=== PATIENT | female | born 1980 | race Caucasian/White ===

== ENCOUNTER 2018-06-04 08:24 | Emergency (ER) | payer BC, OTHER ==
[~2018-06-04] VITALS: Ht 165.1 cm; Wt 81.7 kg
--- NOTE | ~2018-06-04 | EKG ---
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 06/04/18 1623 7 7 Tee Croft MD, [facility] /EPI
[~2018-06-04 08:24] MED LIST: ABILIFY 5 MG TAB5 M1 PO; AMBIEN 10 MG TA10 MG PO; CARISOPRODOL 3350 MG PO; CLONAZEPAM 1 MG1 M1 PO; CLONAZEPAM PO; EFFEXOR XR150 MG PO; EFFEXOR50 MG PO; IBUPROFEN 600600 M1 PO; IBUPROFEN 800800 MG PO; LIDODERM TP; LUPRON; LUPRON DEPOT-PE30 MG IM; NEURONTIN 300M300 M2 PO; NOHOMEMEDICATIONS; NORCO 5-325 TA1 EACH PO; PAMELOR PO; PERCOCET 10-321 EACH PO
[2018-06-04 08:45] LABS: ABSOLUTE NEUTROPHILS 5.4 thou/uL (1.4-8.2); BASOPHILS 0.9 % (0.0-2.0); EOSINOPHILS 7.2 % (0.0-3.0); HEMATOCRIT 39.9 % (37.0-47.0); HEMOGLOBIN 13.9 gm/dL (12.0-15.0); LYMPHOCYTES 23.4 % (24.0-44.0); MCH 29.8 pg (26.0-34.0); MCHC 34.7 g/dL (28.0-37.0); MONOCYTES 6.3 % (1.0-8.0); PLATELET COUNT 377 thou/uL (150-400); POLYS 62.2 % (36.0-66.0); RBC 4.64 mil/uL (4.20-5.00); RDW 14.8 % (10.5-14.5); WBC 8.7 thou/uL (4.0-11.0)
[2018-06-04 08:55] LABS: ANION GAP 7 mmol/L (7-16); BUN 18 mg/dL (7-18); CALCIUM 9.3 mg/dL (8.5-10.1); CHLORIDE 105 mmol/L (98-107); CO2 27 mmol/L (21-32); CREATININE 1.1 mg/dL (0.6-1.0); GLUCOSE 96 mg/dL (74-106); POTASSIUM 4.4 mmol/L (3.5-5.1); SODIUM 139 mmol/L (136-145)
[2018-06-04] MEDS ORDERED: ABILIFY 5 MG TAB5 M1 PO (09:02)
[2018-06-04] MEDS ORDERED: EFFEXOR 5050 MG/1 T1 PO (09:02)
[2018-06-04] MEDS ORDERED: TOPROL XL25 MG PO (09:03)
[2018-06-04] MEDS ORDERED: BUSPIRONE HCL10 MG PO (09:03)
[2018-06-04] MEDS ORDERED: AMBIEN 10 MG TA10 MG PO (09:03)
[2018-06-04] MEDS ORDERED: CLONAZEPAM 1 MG1 M1 PO (09:03)
[2018-06-04 09:05] LABS: TROPONIN-I <0.06 ng/mL (<0.06)
[2018-06-04] MEDS ORDERED: NORCO 5-325 TA1 EACH PO (09:38)
[2018-06-04 09:54] VITALS: BP 110/65
== END 2018-06-04 10:28 | disposition home or self-care (01) ==
LOC: ER 08:24
PROVIDERS: Emergency Medicine
DX: R09.1 Pleurisy (principal); R07.89 Other chest pain; R06.02 Shortness of breath; Z90.49 Acquired absence of other specified parts of digestive tract; Z88.8 Allergy status to other drugs, medicaments and biological substances; Z88.1 Allergy status to other antibiotic agents; Z91.012 Allergy to eggs

== ENCOUNTER 2018-06-06 10:56 | Emergency (ER) | payer BC, OTHER ==
[~2018-06-06] VITALS: Ht 165.1 cm; Wt 81.7 kg
[~2018-06-06 10:56] MED LIST changes: +BUSPIRONE HCL10 MG PO; +EFFEXOR 5050 MG/1 T1 PO; +TOPROL XL25 MG PO
[2018-06-06 11:16] VITALS: BP 116/72
[2018-06-06] MEDS ORDERED: NORCO 5-325 TA1 EACH PO (13:15)
== END 2018-06-06 13:15 | disposition home or self-care (01) ==
LOC: ER 10:56
DX: M27.3 Alveolitis of jaws (principal); Z86.718 Personal history of other venous thrombosis and embolism; Z90.49 Acquired absence of other specified parts of digestive tract; Z88.0 Allergy status to penicillin; Z88.1 Allergy status to other antibiotic agents; Z91.012 Allergy to eggs; Z88.8 Allergy status to other drugs, medicaments and biological substances

== ENCOUNTER 2018-06-17 09:39 | Emergency (ER) | payer BC, OTHER ==
[~2018-06-17] VITALS: Ht 165.1 cm; Wt 81.7 kg
--- NOTE | ~2018-06-17 | EKG ---
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 06/17/18 1259 [id number] Tee Croft MD, FAC /EPI
[2018-06-17 10:34] LABS: HEMATOCRIT 35.9 % (37.0-47.0); HEMOGLOBIN 12.7 gm/dL (12.0-15.0); MCH 30.4 pg (26.0-34.0); MCHC 35.3 g/dL (28.0-37.0); MCV 85.9 fL (80.0-100.0); PLATELET COUNT 404 thou/uL (150-400); RBC 4.18 mil/uL (4.20-5.00); RDW 15.3 % (10.5-14.5); WBC 9.5 thou/uL (4.0-11.0)
[2018-06-17 10:58] LABS: ANION GAP 8 mmol/L (7-16); BUN 29 mg/dL (7-18); CALCIUM 8.9 mg/dL (8.5-10.1); CHLORIDE 106 mmol/L (98-107); CO2 27 mmol/L (21-32); CREATININE 0.9 mg/dL (0.6-1.0); GLUCOSE 99 mg/dL (74-106); SODIUM 141 mmol/L (136-145)
[2018-06-17 11:03] LABS: D-DIMER 1.19 ug/mLFEU (0.19-0.50); PROTIME 10.1 Seconds (9.3-11.4)
[2018-06-17 11:07] LABS: ALBUMIN 3.6 g/dL (3.4-5.0); SGOT 15 U/L (15-37); SGPT 31 U/L (30-65); TOTAL BILIRUBIN 0.2 mg/dL (<0.1-1.0); TOTAL PROTEIN 6.5 g/dL (6.4-8.2); TROPONIN-I <0.06 ng/mL (<0.06)
[2018-06-17 12:12] LABS: ABSOLUTE NEUTROPHILS 5.3 thou/uL (1.4-8.2); PLATELET ESTIMATE NORMAL
[2018-06-17] MEDS ORDERED: NAPROSYN500 MG PO (12:18)
[2018-06-17] MEDS ORDERED: ULTRAM 50MG TAB50 MG PO (12:18)
[2018-06-17] MEDS ORDERED: PREDNISONE 10 M10 MG PO (12:18)
[2018-06-17 12:32] VITALS: BP 118/79
== END 2018-06-17 12:38 | disposition home or self-care (01) ==
LOC: ER 09:39
PROVIDERS: Physician Assistant
DX: R07.1 Chest pain on breathing (principal); N80.9 Endometriosis, unspecified; Z86.718 Personal history of other venous thrombosis and embolism; Z90.49 Acquired absence of other specified parts of digestive tract; Z90.89 Acquired absence of other organs; Z91.012 Allergy to eggs; Z88.8 Allergy status to other drugs, medicaments and biological substances; Z88.1 Allergy status to other antibiotic agents; Z88.0 Allergy status to penicillin

== ENCOUNTER → 2018-12-11 | Outpatient (CLI) | payer BC, OTHER ==
[~2018-12-11] VITALS: Ht 165.1 cm; Wt 77.1 kg
[~2018-12-11] MED LIST changes: +ASPIR 8181 M1 PO; +IMURAN 50MG TAB50 M1 PO; +LEXAPRO 10 MG T10 M2 PO; +NAPROSYN500 MG PO; +PLAVIX 75 MG TA75 M1 PO; +PREDNISONE 10 M10 MG PO; +PROTONIX40 M1 PO; +TYLENOL EXTRA500 MG PO; +ULTRAM 50MG TAB50 MG PO
--- NOTE | ~2018-12-11 | HPC ---
[facility] [place] [address] PAIN MANAGEMENT CONSULTATION Name: JOSE AVILA Gold [id number] Admission: 12/11/18 Attend Phys: Georges Falcon DO Discharge: Date of : 82 Report #: [id number] THIS REPORT FOR: //name// CC: Mónica Freedman DATE OF SERVICE: 12/11/2018 CHIEF COMPLAINT: Right knee pain, right foot pain. HISTORY OF PRESENT ILLNESS: As you know, the patient is a 38-year-old female who reports increasing right knee pain and right foot pain began in 10/2018. The patient apparently has had longstanding right knee pain, which will require surgical intervention according to the patient in February once she is able to come off her anticoagulant in the form of Plavix. She apparently sustained a fall on 10/28/2018 with a potential inversion injury. It was noted that the patient has a cuboid nondisplaced fracture on that right foot. She has been treated through her orthopedic surgeon in regards to this issue. The patient continues to experience pain and will not be able to undergo surgery until February due to use of Plavix therapy. She was referred to our clinic to discuss appropriateness of medication management in her case. She does have a nondisplaced cuboid fracture with associated reactive edema and the patient is in a Cam boot currently. She has been advised to use limited weightbearing. She also continues to experience right knee pain, which is exacerbated by the Cam boot. She has been referred to our clinic to discuss appropriateness of medication management. The patient indicates today pain is continuous, describes the pain as aching, sharp and throbbing, places current pain score 7/10, daily average at 6-7/10, worst pain has been at 9/10. The patient states pain is exacerbated with activity, improves with rest and medications. The majority of her pain is located in the right knee and right foot. PAST MEDICAL HISTORY: 1. Depression. 2. Chronic anticoagulation. 3. Gastroesophageal reflux disease. 4. Osteopenia. 5. Crohn disease. PAST SURGICAL HISTORY: 1. Closure of a PFO. 2. Right meniscal injury repair. 3. Right hip repair. SOCIAL HISTORY: The patient denies tobacco, IV or illicit drug use. Admits to [address] [address] PAIN MANAGEMENT CONSULTATION Name: JOSE AVILA Gold Room #: REG [facility] Kelly#: [id number] Admission: 12/11/18 Attend Phys: Georges Falcon DO Discharge: Date of : 82 Report #: [id number] 3 alcoholic beverages per week. 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 She has been out of work for 2 months. She is not receiving workmen's compensation or is she trying to obtain disability benefits. She is not in litigation in regards to pain. REVIEW OF SYSTEMS: Positive for nausea, painful menses, irregular menses, depression, bleeding and bruising tendencies, chronic abdominal pain, osteopenia, right knee pain, right foot pain status post injury. All other review of systems negative per 12-point review of systems other than those listed in the history of present illness. Pain impact score 36/70 indicating moderate interference of daily activities secondary to pain. ALLERGIES: COMPAZINE, PENICILLIN, AMITRIPTYLINE, LEVOTHYROXINE. CURRENT MEDICATIONS: Tylenol Extra Strength 1000 mg every 6 hours, aspirin 81 mg per day, Lexapro 10 mg per day, Imuran 50 mg once a day, venlafaxine XR 150 mg once a day, pantoprazole 40 mg per day, Plavix 75 mg per day, clonazepam 1 mg p.r.n. anxiety, Abilify 5 mg per day. IMAGING: There is no imaging of the right knee. MRI of right foot shows nondisplaced cuboid fracture with associated reactive edema. Normal edema seen within the metatarsals, minimal soft tissue edema noted laterally. PHYSICAL EXAMINATION: VITAL SIGNS: Blood pressure 124/83, pulse 93, respiratory rate 16 and unlabored. The patient is 98% on room air. Height 5 feet 5 inches tall, weight 170 pounds, BMI calculated 28.3. GENERAL: Well-developed, well-nourished, well-hydrated 38-year-old female, appearing her stated age. She is in no acute distress, awake, alert and oriented x 3. Pain is rated today at 7/10 involving right knee and right foot. HEENT: Normocephalic, atraumatic. Pupils equal, round, reactive to light. Extraocular muscles are intact. Sclerae nonicteric without injection. NEUROLOGIC: Cranial nerves 2 through 12 grossly intact. Speech is fluent. The patient deemed a fair historian. LUNGS: Clear, no wheeze, rhonchi or rales. CARDIOVASCULAR: Regular. No appreciable gallop, no rub. ABDOMEN: Soft, mildly obese, normoactive bowel sounds. EXTREMITIES: Show no clubbing, no cyanosis, no edema. MUSCULOSKELETAL: The patient has a Cam boot over right foot. Gait is antalgic secondary to a Cam boot and right knee pain. Active and passive range of motion of right knee intensifies knee pain with no radiation of symptoms. Muscle bulk and tone appears grossly symmetrical when comparing left lower extremity to [address] [address] PAIN MANAGEMENT CONSULTATION Name: JOSE AVILA Room #: [facility]#: [id number] Admission: 12/11/18 Attend Phys: Georges Falcon DO Discharge: Date of : 82 Report #: [id number]. ASSESSMENT: 1. Right knee pain. 2. Right knee osteoarthritis. 3. Right foot pain. 4. Right cuboid nondisplaced fracture. 5. Chronic intractable pain. PLAN: The patient has been referred to our service to discuss the appropriateness of medication management. We have taken the liberty prior to the patient coming to our clinic to perform K-TRACS and MO-TRACS evaluation. Our research has shown the patient has received multiple prescriptions of opioid medications over the past year, seen 29 different prescribers and filling opioid prescriptions at 20 different pharmacies. She has received over 55 prescriptions of opioids in the timeframe that we have reviewed. Due to these findings, we do not feel that it would be appropriate for us to initiate medication therapy. We will not be following the patient long-term and the findings of this K-TRACS and MO-TRACS evaluation are quite concerning for misuse of medication management. I have discussed this with the patient today. She indicates the majority of these prescriptions were provided through different Emergency Departments that she has gone to for various pain issues. This would certainly address the multiple physicians she saw, but this does not answer the question why the patient was filling these prescriptions at 20 different pharmacies and at many times utilizing hicks payment. I have discussed this with the patient today and thus I am extremely concerning about opioid management in this patient's case. I would indicate, though, that the patient will likely need some type of pain medications to address her right knee pain and right foot pain. Obviously, the foot pain will improve quite quickly 4-6 weeks for a nondisplaced fracture assuming the patient can remain relatively weight restricted on that foot. The right knee pain would likely be improved with the surgery planned in February. The following would be suggestions for the referring physician on treatment for this patient: 1. Would recommend if you choose to utilize opioid medications such as hydrocodone that the patient is receiving only a 1-week prescription to maximum of 2-week prescription, the prescription should be limited to hydrocodone only, should not be a higher dose than 7.5/325 mg tablet and should not be receiving more than 3 tablets in any given day. By having the patient returned on a weekly basis, you would be able to monitor the patient more closely for any aberrancies. I would recommend that the patient sign an opioid contract with your services, this would does protect you and the patient. Would also recommend the patient to be provided a specific pharmacy to fill these medications at and that the prescription is written so that it is only released at that specific pharmacy. I would recommend that the patient take no more than 3 tablets in any given day and that they should be decreased rapidly approximately 2-3 weeks prior to the planned surgery in February. This will allow [address] [address] PAIN MANAGEMENT CONSULTATION Name: JOSE AVILA Room #: [facility]#: [id number] Admission: 12/11/18 Attend Phys: Georges Falcon DO Discharge: Date of : 82 Report #: [id number] the patient some analgesic benefit to help with the nondisplaced cuboid fracture. It will also help with the right knee pain, but will provide you with coverage and close contact with the patient for monitoring of opioid use. 2. Would recommend that if you feel comfortable initiating a nonsteroidal anti-inflammatory, the nonsteroidal anti-inflammatories tend to help with bony pain, though I do understand that Orthopedics feel that it has a potential to reduce bone healing, I will defer to Dr. Mehta, the referring physician, if he wishes to start this medication. If this medication is considered, nabumetone 500 mg 3 times a day is quite effective taken with meals, also diclofenac at 50 mg 3 times a day is quite effective again taken with meals. 3. The patient and I discussed the weightbearing that she is doing currently on the right foot. She has been advised by her recollection as well as our understanding of this fracture to limit weightbearing. She has been unable to do so due to her infant child. Recommend the patient contact the Orthopedic Surgery team to determine if a roller scooter might be a way for her to be able to provide less weightbearing, but also be able to handle her young . 4. We wish to thank you for the opportunity to see this patient in consultation. This is definitely a complicated case and given her noted findings on the K-TRACS and MO-TRACS systems, I would recommend that you remain vigilant on this patient's treatment requiring her to be seen either once a week or every other week for opioid medications and no more than 3 a day. I would not recommend stronger than hydrocodone in this patient's case as post-surgery, she will probably require something more effective such as Percocet and thus we do not want to initiate some type of development of tolerance prior to the surgery. We are hopeful the information provided in this dictation will help you direct her care more effectively. We thank you for the opportunity to see her in consultation and wish her well with her proposed surgery in February. Again, we wish to thank you for the opportunity to see this patient in consultation. By: [id number] Georges Falcon DO /kamala
[2018-12-11 09:40] VITALS: BP 124/83
--- NOTE | 2018-12-11 10:21 | NUR ---
Pain Clinic Assessment: 1. History of Osteoarthritis: osteopenia History of Rheumatoid Arthritis: Not Applicable 2. Height: 5 ft. 5 in. 165.1 cm. Weight: 170.0 lb. oz. 77.112 kg. Patient's BMI: 28.3 3. Vital Signs: BP: 124/83 Pulse: 93 Resp: 16 Temp: 02 Sat: 98 ECG Mon: 4. Pain Intensity: 7 5. Fall Risk: Dizziness: N Needs help standing or walking: N Fallen in the last 3 months: Y Fall risk comments: 6. Patient on Blood Thinner: Clopidogrel Bisulf(Plavix 7. History of Hypertension: N 8. Opioid Therapy greater than 6 weeks: Opiate Contract Signed: 9. Risk Assessment Tool Provided: low 10. Functional Assessment Tool: 11. Recreational Drug Use: Never Drug Type: Tobacco Use: Never Smoker Tobacco Type: Amount or Packs/day: How Many Years: Alcohol Use: Yes Frequency: Special Occasions Quant:
== END ==
LOC: PAIN 07:12
DX: M17.11 Unilateral primary osteoarthritis, right knee (principal); S92.214A Nondisplaced fracture of cuboid bone of right foot, initial encounter for closed fracture; M79.671 Pain in right foot; G89.4 Chronic pain syndrome; X58.XXXA Exposure to other specified factors, initial encounter; Y93.89 Activity, other specified; Y92.89 Other specified places as the place of occurrence of the external cause; Y99.8 Other external cause status